=== PATIENT | male | born 1980 | race Caucasian/White ===

== ENCOUNTER 2018-03-25 11:50 | Outpatient (CLI) | payer MEDICARE ==
--- NOTE | 2018-03-25 12:37 | RAD ---
FRONTAL AND LATERAL IMAGING CHEST: Date: 03-25-18 Comparison: None. History: Shortness of breath, history of multiple sclerosis. FINDINGS: There is no pneumothorax or pleural fluid. No focal consolidation or alveolar edema. Heart and medias tinal contours are unremarkable. IMPRESSION: No acute findings. POS: [facility]
[2018-03-25 14:38] LABS: Albumin (w/Testosterone Panel) 4.4 g/dL
[2018-03-25 15:03] LABS: Sex Hormone Binding Globulin 86.7 nmol/L (11-78); Testosterone, Free 88.4 pg/mL (47-244); Testosterone, Total 799.2 ng/dL (240-871)
== END 2018-03-25 11:51 | disposition home or self-care (01) ==
LOC: SCSRAD 11:50
PROVIDERS: ATTEND Psychiatry & Neurology Neurology
DX: G35 Multiple sclerosis (principal); R53.83 Other fatigue
CPT/HCPCS: 36415; 71046; 84270; 84403; 84436

== ENCOUNTER 2020-01-09 21:53 | Emergency (ER) | payer MEDICARE ==
[2020-01-09 22:35] LABS: Band 4 % (5-11); Hemoglobin 15.6 g/dL (14.0-18.0); Lymphocytes 16 % (21-51); MDiff Complete? YES; Mean Corpuscular HGB CONC 33.9 g/dL (32.0-36.0); Mean Corpuscular Hemoglobin 32.1 pg (27.0-31.0); Mean Corpuscular Volume 94.5 fL (78.0-98.0); Mean Platelet Volume 7.8 fL (7.4-10.4); Monocytes 14 % (0-10); Neutrophil 66 % (42-75); Platelet Count 249 thou/uL (130-400); Platelet Morphology Comment Appears Adequate; RBC Distribution Width 11.6 % (11.5-14.5); Red Blood Cell (RBC) Count 4.86 mill/uL (4.70-6.10); White Blood Cell (WBC) Count 6.9 thou/uL (4.8-10.8)
[2020-01-09 22:37] LABS: Bilirubin Negative (Negative); Blood, Urine Negative (Negative); Clarity Clear (Clear); Glucose, Urine (Dipstick) Normal (Negative); Leukocyte Negative Leu/uL (Negative); Nitrite Negative (Negative); Protein, Urine (Dipstick) Negative (Neg-Trace); Urobilinogen Normal mg/dL (Less than 2)
[2020-01-09 22:57] LABS: ALT (SGPT) 11 U/L (8-55); AST (SGOT) 14 U/L (5-34); Albumin 4.1 g/dL (3.5-5.0); Alkaline Phosphatase 90 U/L (40-110); Anion Gap 12 mmol/L (10-20); BUN (Urea Nitrogen) 9 mg/dL (8.9-20.6); Bilirubin, Total 0.4 mg/dL (0.2-1.2); Calc. Creatinine Clearance 0 mL/min (70-130); Calcium 9.6 mg/dL (7.8-10.44); Carbon Dioxide 22 mmol/L (22-29); Chloride 109 mmol/L (98-107); Estimated GFR-MDRD Greater than 90; Globulin 2.4 g/dL (2.4-3.5); Glucose 97 mg/dL (70-105); Potassium 3.9 mmol/L (3.5-5.1); Protein, Total 6.5 g/dL (6.0-8.3); Sodium 139 mmol/L (136-145)
== END 2020-01-10 01:21 ==
LOC: ERS 21:53
DX: R31.9 Hematuria, unspecified (principal); F41.9 Anxiety disorder, unspecified; F32.9 Major depressive disorder, single episode, unspecified; E55.9 Vitamin D deficiency, unspecified; Z79.899 Other long term (current) drug therapy; Z87.891 Personal history of nicotine dependence; Z87.442 Personal history of urinary calculi
CPT/HCPCS: 36415; 80053; 81003; 85025; 87086; 99283